=== PATIENT | female | born 1970 | race Caucasian/White ===

== ENCOUNTER 2020-01-23 11:57 | Inpatient (IN) | payer OTHER ==
[~2020-01-23] VITALS: Ht 160 cm; Wt 119.7 kg
--- NOTE | ~2020-01-23 | EMS ---
[address] [address] EMS Patient Care Report Name: TOM COTA Room #: REG LEYDA Du#: [id number] Admission: 01/23/20 Attend Phys: Discharge: Date of : 70 Report #: [id number] THIS REPORT FOR: //name// Report Transmitted: 01/23/2020 12:54 EMS Care Summary [place], [place]/[facility] Incident [id number] @ 01/23/2020 11:26 Incident Location [id number] [place], [place] [id number] Patient TOM COTA Female, 49 Years 1970 Patient Address [address] [place] [id number] Patient History Asthma,Hypertension (HTN),Type 2 Diabetes, Patient Allergies Penicillin allergy, Patient Medications Metformin, Lisinopril, Albuterol, Sumatriptan, Chief Complaint ABD PAIN Disposition Transported No Lights/Simms Dispatch Reason Chest Pain (Non-Traumatic) Transported To [facility] Narrative DISPATCHED EMERGENCY ON A C/P. [facility] ON SCENE UPON ARRIVAL. 49 Y/O FEMALE SITTING IN BED APPEARING IN NO IMMEDIATE DISTRESS. GCS 15 AND A/OX4. PT [address] [address] EMS Patient Care Report Name: TOM COTA Room #: REG LEYDA Du#: [id number] Admission: 01/23/20 Attend Phys: Discharge: Date of : 70 Report #: [id number] CONSENTS FOR TX AND TRANSPORTATION. V/S'S OBTAINED BY [facility] PRIOR TO EMS ARRIVAL. PT STATES SHE STARTED HAVING ABD THIS MORNING AND HAS HAD DIARRHEA X2 DAYS. ALSO STATES SHE BECAME NAUSEOUS. DENIES ANY COVID SYMPTOMS. PT IS WEARING MASK UPON CONTACT. MOVED WITHOUT INCIDENT TO AMBULANCE VIA STRETCHER. V/S'S OBTAINED. TRANSPORTED TO [facility]. REASSESSED ENROUTE. REMAINS GCS 15 AND ALERT. PAIN REMAINS UNCHANGED. V/S'S OBTAINED. REPORT CALLED TO HOSPITAL. MOVED WITHOUT INCIDENT TO ER HOSPITAL BED. PT CARE TRANSFERRED TO ED RN. Initial Vitals @PTAP: 69,R: 18,BP: 177/70,Pain: 10/10,GCS: 15,Glucose: 98,SpO2: 98,Revised Trauma: 12, @11:48P: 82,R: 18,BP: 152/93,Pain: 10/10,GCS: 15,CO: 5,SpO2: 96,Revised Trauma: 12, @11:41P: 83,R: 18,BP: 174/100,Pain: 10/10,GCS: 15,Revised Trauma: 12, Assessments @11:35MENTAL:Person Oriented,Time Oriented,Event Oriented,Place Oriented,SKIN:HEENT:Eyes: Left Pupil: 4-mm,Eyes: Right Pupil: 4-mm,Head/Face: No Abnormalities,Neck/Airway: No Abnormalities,LUNG SOUNDS:General: Diarrhea,General: Nausea,Left Upper: Tenderness,Right Upper: Tenderness,ABDOMEN:General: Diarrhea,General: Nausea,Left Upper: Tenderness,Right Upper: Tenderness,PELVIS//GI:EXTREMITIES:Capillary Refill: Right Lower: < 2 Sec,Capillary Refill: Left Upper: < 2 Sec,Capillary Refill: Left Lower: < 2 Sec,Capillary Refill: Right Upper: < 2 Sec,Left Arm: No Abnormalities,Right Arm: No Abnormalities,Left Leg: No Abnormalities,Right Leg: No Abnormalities,PULSE:Radial: 2+ Normal,NEURO:No Abnormalities, Impression Abdominal Pain Procedures @11:35ALS AssessmentResponse: UnchangedSucceeded@11:38StretcherResponse: Unchanged Timeline RELAY SHOP SUPERVISOR,BP: 177/70 M,PULSE: 69,RR: 18 R,SPO2: 98 Ox,ETCO2: ,B,PAIN: 10,GCS: 15, 11:23,Call Received 11:23,Dispatch Notified 11:26,Dispatched 11:29,En Route 11:33,On Scene 11:34,At Patient 11:35,ALS Assessment,Response: UnchangedSucceeded, 11:38,Stretcher,Response: Unchanged [address] [address] EMS Patient Care Report Name: TOM COTA Room #: REG LEYDA Du#: [id number] Admission: 01/23/20 Attend Phys: Discharge: Date of : 70 Report #: [id number] 11:41,BP: 174/100 M,PULSE: 83,RR: 18 R,SPO2: Ox,ETCO2: ,BG: ,PAIN: 10,GCS: 15, 11:44,Depart Scene 11:48,BP: 152/93 M,PULSE: 82,RR: 18 R,SPO2: 96 Ox,ETCO2: ,BG: ,PAIN: 10,GCS: 15, 11:53,At Destination 12:08,Call Closed Disclaimer v1.1 Copyright 2020 [employer] This EMS Care Summary contains data elements from the applicable legal record (which may be displayed differently). It is designed to provide pertinent information for the following purposes: continuity of care, clinical quality, and state data reporting. The complete legal record is available to ED staff and administrators of the receiving hospital in [employer]'s Patient Tracker. All data is provided "as is."
[2020-01-23 11:58] VITALS: BP 176/103
[2020-01-23 12:43] LABS: ABSOLUTE NEUTROPHILS 10.4 thou/uL (1.4-8.2); BASOPHILS 0.4 % (0.0-2.0); EOSINOPHILS 0.2 % (0.0-3.0); HEMATOCRIT 45.4 % (37.0-47.0); LYMPHOCYTES 10.8 % (24.0-44.0); MCH 30.1 pg (26.0-34.0); MCHC 33.1 g/dL (28.0-37.0); MCV 90.9 fL (80.0-100.0); MONOCYTES 4.3 % (1.0-8.0); PLATELET COUNT 257 thou/uL (150-400); POLYS 84.3 % (36.0-66.0); RBC 4.99 mil/uL (4.20-5.00); RDW 14.6 % (10.5-14.5); WBC 12.4 thou/uL (4.0-11.0)
[2020-01-23 13:03] LABS: CALCIUM 8.9 mg/dL (8.5-10.1); CREATININE 0.8 mg/dL (0.6-1.0); POTASSIUM 3.4 mmol/L (3.5-5.1)
[2020-01-23 13:11] LABS: ALBUMIN 3.4 g/dL (3.4-5.0); TOTAL BILIRUBIN 0.5 mg/dL (0.2-1.0); TOTAL PROTEIN 8.1 g/dL (6.4-8.2)
[2020-01-23 13:37] LABS: URINE BILIRUBIN NEGATIVE (Negative); URINE BLOOD 2+ (Negative); URINE CLARITY CLEAR; URINE COLOR YELLOW; URINE GLUCOSE-RANDOM* NEGATIVE (Negative); URINE KETONES NEGATIVE (Negative); URINE NITRITE-REFLEX NEGATIVE (Negative); URINE PROTEIN (DIPSTICK) 1+ (Negative); URINE UROBILINOGEN 0.2 E.U./dl (0.2-1.0)
[2020-01-23 13:55] LABS: URINE LEUKOCYTES-REFLEX 1+ (Negative)
[2020-01-23 14:37] LABS: CASTS None Seen /LPF (None Seen); SQUAMOUS >10 Many /LPF (0-3)
[2020-01-23 14:38] LABS: BACTERIA-REFLEX 1-9 Few /HPF (None Seen); CRYSTALS None Seen /LPF (None Seen); URINE RBC 0-2 Rare /HPF (0-2); URINE WBC-REFLEX 0-5 Rare /HPF (0-5)
[2020-01-23 15:27] VITALS: BP 176/103
[2020-01-23] MEDS ORDERED: TOVIAZ8 MG PO (15:46)
[2020-01-23] MEDS ORDERED: IMITREX100 MG PO (15:46)
[2020-01-23] MEDS ORDERED: LISINOPRIL-HCT1 EAC1 PO (15:47)
[2020-01-23 17:16] VITALS: BP 139/87
--- NOTE | 2020-01-23 20:19 | NUR ---
PATIENT ADMITTED FROM ER WITH PANCREATITIS, ABDOMINAL PAIN, DIARRHEA. PATIENT DENIES PAIN UPON ARRIVING TO THE UNIT, BUT DURING ADMISSION C/O PAIN WITH ABDOMEN AREA, MORPHINE 2MG IV GIVEN FOR PAIN LEVEL 10/10. PATIENT HAS RIGHT AC IV IN PLACE, STARTED NS AT 150CC/HR. ALSO STARTED POTASSIUM 50CC/HR. ADMISSION DONE, REPORT GIVEN TO JAMIE/ESTUARDO.
[2020-01-23 22:00] VITALS: BP 130/71
[2020-01-24 03:38] VITALS: BP 146/81
--- NOTE | 2020-01-24 05:41 | NUR ---
ASSUMED PT CARE AT 2020. PT IS ALERT AND ORIENTED X4. PT COMPLAINS OF TINGLING IN HER RIGHT ARM. RESOLVED BY CHANGING THE WAY THE PUMP WAS SET UP. COMPLAINES OF ABDOMINAL PAIN. 02/28 PT GIVEN MORPHINE FOR PAIN. PAIN RESOLVED, PT RESTING IN ROOM. PT IS ON THE PHONE AND IS YELLING AT FIANCE ON. PT HAS N/V AT 2336. PT STATES THAT NAUSEA WAS RESOLVED AFTER RECIEVING ZOFRAN. PT HAS NOT A A BM FOR SAMPLE. PT IS RESTING IN HER ROOM. WILL CONTINUE TO MONITOR.
[2020-01-24 06:32] LABS: HEMATOCRIT 40.2 % (37.0-47.0); HEMOGLOBIN 13.2 gm/dL (12.0-15.0); MCH 30.2 pg (26.0-34.0); MCHC 32.9 g/dL (28.0-37.0); MCV 91.9 fL (80.0-100.0); RBC 4.37 mil/uL (4.20-5.00); RDW 14.5 % (10.5-14.5)
[2020-01-24 07:07] LABS: ALBUMIN 2.8 g/dL (3.4-5.0); CALCIUM 7.8 mg/dL (8.5-10.1); CREATININE 0.7 mg/dL (0.6-1.0); TOTAL BILIRUBIN 0.5 mg/dL (0.2-1.0); TOTAL PROTEIN 6.8 g/dL (6.4-8.2)
[2020-01-24 08:00] VITALS: BP 13/76
--- NOTE | 2020-01-24 09:18 | NUR ---
ASSESSMENT: CM REVIEWED CHART AND SPOKE WITH PATIENT. PT WAS ADMITTED DUE TO ABDOMINAL PAIN/ POSSIBLE PANCREATITIS. GI HAS BEEN CONSULTED TO SEE PATIENT. CM MET WITH PATIENT WHO REPORTS SHE LIVES IN A MOTEL WITH HER FIANCE. PT REPORTS SHE IS FULLY INDEPENDENT WITH ADLS AND AMBULATION. PT REPORTS SHE HAS NO PREVIOUS HX OF HH OR SNF/ACUTE REHAB. PT REPORTS SHE HAS NO DME OR THE NEED FOR IT. PT STATES SHE MAY NEED POSSIBLE TRANSPORTATION AT DISCHARGE. CM WILL CONTINUE TO FOLLOW TO ASSIST NEEDED.
--- NOTE | 2020-01-24 11:16 | NUR ---
PT CARE ASSUMED AT 0700.A&Ox4. PT UP IN RECLINER. IV PATENT WITH NO REDNESS OR EDEMA, FLUIDS INFUSING. PAIN CONTROLLED WELL WITH PAIN MEDICATION ON BOARD. DIET ADVANCED TO CLEAR LIQUIDS. WILL MONITOR HOW SHE TOLERATES THIS DIET. UP INDEPENDENTLY IN THE ROOM. NO COMPLAINTS OF N/V CURRENTLY. ABDOMEN ROUND AND HARD WITH NO STOOLS TODAY. ACHS WITH COVERAGE. CALL LIGHT IN REACH. WILL CONTINUE TO MONITOR.
[2020-01-24 16:18] VITALS: BP 146/78
[2020-01-24 19:47] VITALS: BP 149/76
[2020-01-25 04:01] VITALS: BP 126/87
--- NOTE | 2020-01-25 06:05 | NUR ---
RECIEVED CARE OF THIS PATIENT AT 1900. PATIENT ALERT AND ORIENTED X4. ACCCHECK WAS 120, NO COVERAGE NEEDED. PATIENT UP AD RUSTY TO BATHROOM AND HALLS. PERFERS TO SLEEP IN THE RECLINER THAN THE BED.DENIES PAIN. SLEPT MOST OF THE NIGHT.
[2020-01-25 08:00] VITALS: BP 112/57
[2020-01-25] MEDS ORDERED: PRINIVIL20 M1 PO (09:16)
[2020-01-25] MEDS ORDERED: LEVAQUIN 500 M500 M2 PO (09:18)
--- NOTE | 2020-01-25 09:34 | NUR ---
on-going assessment: CM REVIEWED CHART. PT IS A POSSIBLE DISCHARGE TODAY. CM MET WITH PATIENT WHO REPORTS SHE WILL NOT HAVE TRANSPORTATION HOME. CM VERIFIED PATIENTS ADDRESS TO [employer] [facility] AND PROVIDED BEDSIDE RN WITH A CAB VOUCHER#[id number].
--- NOTE | 2020-01-25 09:39 | NUR ---
Assumed care of pt at 0700. Pt a&ox4. Denies pain. States she wants to eat regular food. IVF infusing. Pt will discharge home. Cab voucher obtained by counter caser.
[2020-01-25 10:14] VITALS: BP 112/57
== END 2020-01-25 10:57 | disposition home or self-care (01) | DRG 391 ==
LOC: ER 11:57 → 4S 17:16 → EROBS 17:17 → 4S 17:52
PROVIDERS: Emergency Medicine; ADMIT Hospitalist; ATTEND Hospitalist
DX: K57.92 Diverticulitis of intestine, part unspecified, without perforation or abscess without bleeding (principal); K85.90 Acute pancreatitis without necrosis or infection, unspecified; R65.10 Systemic inflammatory response syndrome (SIRS) of non-infectious origin without acute organ dysfunction; N39.0 Urinary tract infection, site not specified; Z68.42 Body mass index [BMI] 45.0-49.9, adult; K52.9 Noninfective gastroenteritis and colitis, unspecified; J45.909 Unspecified asthma, uncomplicated; I10 Essential (primary) hypertension; E66.9 Obesity, unspecified; E87.6 Hypokalemia; G43.909 Migraine, unspecified, not intractable, without status migrainosus; K76.0 Fatty (change of) liver, not elsewhere classified; E11.9 Type 2 diabetes mellitus without complications; Z83.3 Family history of diabetes mellitus; Z90.49 Acquired absence of other specified parts of digestive tract; Z86.73 Personal history of transient ischemic attack (TIA), and cerebral infarction without residual deficits; Z88.6 Allergy status to analgesic agent; Z88.0 Allergy status to penicillin; Z82.49 Family history of ischemic heart disease and other diseases of the circulatory system
CPT/HCPCS: 10195

== ENCOUNTER 2020-01-28 08:49 | Emergency (ER) | payer OTHER ==
[~2020-01-28] VITALS: Ht 160 cm; Wt 131.5 kg
[~2020-01-28 08:49] MED LIST: IMITREX100 MG PO; LEVAQUIN 500 M500 M2 PO; LISINOPRIL-HCT1 EAC1 PO; PRINIVIL20 M1 PO; TOVIAZ8 MG PO
[2020-01-28] MEDS ORDERED: METFORMIN HCL500 M3 PO (09:15)
[2020-01-28] MEDS ORDERED: ALBUTEROL2.5 MG/31 INH (09:15)
[2020-01-28 10:35] LABS: ABSOLUTE NEUTROPHILS 7.5 thou/uL (1.4-8.2); BASOPHILS 0.9 % (0.0-2.0); EOSINOPHILS 0.5 % (0.0-3.0); HEMATOCRIT 43.1 % (37.0-47.0); HEMOGLOBIN 14.3 gm/dL (12.0-15.0); LYMPHOCYTES 14.8 % (24.0-44.0); MCHC 33.1 g/dL (28.0-37.0); MCV 90.4 fL (80.0-100.0); MONOCYTES 6.5 % (1.0-8.0); PLATELET COUNT 292 thou/uL (150-400); POLYS 77.3 % (36.0-66.0); RBC 4.77 mil/uL (4.20-5.00); RDW 14.3 % (10.5-14.5); WBC 9.7 thou/uL (4.0-11.0)
[2020-01-28 10:45] LABS: ANION GAP 9 mmol/L (7-16); BUN 6 mg/dL (7-18); CALCIUM 9.1 mg/dL (8.5-10.1); CHLORIDE 100 mmol/L (98-107); CO2 29 mmol/L (21-32); CREATININE 0.8 mg/dL (0.6-1.0); GLUCOSE 115 mg/dL (74-106); POTASSIUM 3.3 mmol/L (3.5-5.1); SODIUM 138 mmol/L (136-145)
[2020-01-28 10:51] LABS: ALBUMIN 3.2 g/dL (3.4-5.0); DIRECT BILIRUBIN < 0.1 mg/dL (<0.1-0.2); LIPASE 299 U/L (73-393); SGOT 16 U/L (15-37); SGPT 23 U/L (30-65); TOTAL BILIRUBIN 0.3 mg/dL (0.2-1.0); TOTAL PROTEIN 7.9 g/dL (6.4-8.2)
[2020-01-28 11:32] LABS: URINE BILIRUBIN NEGATIVE (Negative); URINE BLOOD 2+ (Negative); URINE CLARITY CLEAR; URINE COLOR YELLOW; URINE GLUCOSE-RANDOM* NEGATIVE (Negative); URINE KETONES NEGATIVE (Negative); URINE LEUKOCYTES-REFLEX TRACE (Negative); URINE NITRITE-REFLEX NEGATIVE (Negative); URINE PROTEIN (DIPSTICK) TRACE (Negative); URINE UROBILINOGEN 0.2 E.U./dl (0.2-1.0)
[2020-01-28 11:52] LABS: SQUAMOUS 4-10 Moderate /LPF (0-3)
[2020-01-28 11:53] LABS: BACTERIA-REFLEX 1-9 Few /HPF (None Seen); CASTS None Seen /LPF (None Seen); CRYSTALS None Seen /LPF (None Seen); URINE RBC 0-2 Rare /HPF (0-2); URINE WBC-REFLEX None Seen /HPF (0-5)
[2020-01-28] MEDS ORDERED: ZOFRAN ODT4 MG PO (12:29)
[2020-01-28] MEDS ORDERED: NORCO 5-325 TA1 EAC2 PO (12:29)
[2020-01-28 12:37] VITALS: BP 148/79
== END 2020-01-28 12:37 | disposition home or self-care (01) ==
LOC: ER 08:49
PROVIDERS: Emergency Medicine
DX: K85.90 Acute pancreatitis without necrosis or infection, unspecified (principal); J45.909 Unspecified asthma, uncomplicated; E11.9 Type 2 diabetes mellitus without complications; F17.210 Nicotine dependence, cigarettes, uncomplicated; Z90.49 Acquired absence of other specified parts of digestive tract; Z79.2 Long term (current) use of antibiotics; Z79.899 Other long term (current) drug therapy; Z88.0 Allergy status to penicillin; Z88.5 Allergy status to narcotic agent; Z88.6 Allergy status to analgesic agent

== ENCOUNTER 2020-03-13 23:27 | Emergency (ER) | payer OTHER ==
[~2020-03-13] VITALS: Ht 160 cm; Wt 132.4 kg
[~2020-03-13 23:27] MED LIST changes: +ALBUTEROL2.5 MG/31 INH; +METFORMIN HCL500 M3 PO; +NORCO 5-325 TA1 EAC2 PO; +ZOFRAN ODT4 MG PO
[2020-03-14] MEDS ORDERED: CORTISPORIN OTI10 M2 OTIC (00:23)
[2020-03-14 00:33] VITALS: BP 151/88
== END 2020-03-14 00:34 | disposition home or self-care (01) ==
LOC: ER 23:27
DX: H60.91 Unspecified otitis externa, right ear (principal); E11.9 Type 2 diabetes mellitus without complications; J45.909 Unspecified asthma, uncomplicated; F17.210 Nicotine dependence, cigarettes, uncomplicated; Z98.51 Tubal ligation status; Z90.49 Acquired absence of other specified parts of digestive tract; Z86.73 Personal history of transient ischemic attack (TIA), and cerebral infarction without residual deficits; Z79.899 Other long term (current) drug therapy; Z88.0 Allergy status to penicillin; Z88.5 Allergy status to narcotic agent; Z88.6 Allergy status to analgesic agent; Z91.013 Allergy to seafood; Z91.010 Allergy to peanuts